=== PATIENT | female | born 1990 | race African-American/Black ===

== ENCOUNTER 2016-11-20 09:52 | Emergency (ER) | payer OTHER ==
--- NOTE | ~2016-11-20 | CT2 ---
[facility] A Service of [facility] & [facility] RADIOLOGY TEXT RESULTS PATIENT: PARISA SANCHEZ LOCATION: CFTX : 88 UNIT #: [id number] AGE: [address]: Lora Rosen APRN SEX: F ORDER DR: [id number] [facility] [address] [place], [place] [address] [id number] MR#: [id number] Acc #: [id number] NAME: PARISA SANCHEZ : 1990 SEX: F STUDY DATE/TIME: UNIT: CFTX ROOM: STUDY DESCRIPTION: CT Abd and Pelv W Cont Attending Physician: Lora Rosen A.P.R.N. Ordering Physician: Kylee Gonzalez M.D. Primary Care Physician: Ramu Nur M.D. MEDICAL IMAGING REPORT This report is preliminary unless electronic signature is present EXAM CT abdomen pelvis with contrast 11/20/2016 1224 hours HISTORY 26-year-old with abdominal pain for 2 weeks. Nausea and vomiting. COMPARISON None. TECHNIQUE Dynamic helical CT images were obtained from the lung bases through the pubic symphysis. Intravenous contrast only was administered. Sagittal and coronal reconstructions were performed. Contrast was Isovue-370 100 mL IV. Total exam DLP 1206 mGy-cm. This CT exam was performed with one or more of the following radiation dose reduction techniques: automatic control, adjustment of mA and/or kV according to patient size, and iterative reconstruction. FINDINGS Images through the lung bases are clear. There are no effusions. The distal esophagus is normal. Images through the abdomen demonstrates diffuse low attenuation of the liver relative to the spleen likely diffuse fatty infiltration. No focal liver lesion is seen. The spleen, pancreas and bile ducts are normal. There is a very contracted gallbladder difficult to assess but no definite stones, sludge or wall thickening is seen. The adrenal glands are normal. The kidneys demonstrate no mass, stone or dilatation. There are no renal or ureteral calculi. The abdominal aorta is normal in caliber. The stomach is nondistended and unopacified but appears normal. There is no small bowel distension or small bowel wall thickening. The terminal ileum is normal. It is difficult to discriminate the appendix but there is no evidence of appendicitis. The colon is nondistended. There is no STS. [facility] A Service of [facility] RADIOLOGY TEXT RESULTS PATIENT: PARISA SANCHEZ LOCATION: CFTX : 89 UNIT #: [id number] AGE: [address]: Lora Rosen [employer] SEX: F ORDER DR: wall thickening. CT pelvis demonstrates anteverted uterus without uterine or adnexal mass. There is no pelvic free fluid. There is no evidence of a ventral wall hernia or inguinal hernia. Lumbar spine is unremarkable. IMPRESSION 1. Exam is somewhat compromised by large body habitus with diffuse graininess of the images. 2. There is fatty infiltration of the liver but no acute findings in the abdomen or pelvis. Dictated by... Carolyn Marquez M.D. THIS IS AN ELECTRONICALLY VERIFIED REPORT Carolyn Marquez M.D. at 11/25/2016 2:30 PM ZE/zach TD: 11/20/2016 13:56 JOB #: [id number] MEDICAL IMAGING REPORT Page 1 of 1 COPY
[~2016-11-20 09:52] MED LIST: PRENATAL PO
[2016-11-20 11:06] LABS: URINE SOURCE CLEAN CATCH
[2016-11-20 11:20] LABS: URINE APPEARANCE CLEAR; URINE BILIRUBIN NEG (NEG); URINE BLOOD TRACE (NEG); URINE COLOR YELLOW; URINE GLUCOSE NEG (NEG); URINE KETONE NEG (NEG); URINE LEUKOCYTE ESTERASE TRACE (NEG); URINE NITRATE NEG (NEG); URINE PROTEIN NEG (NEG); URINE SPECIFIC GRAVITY 1.017 (1.003-1.035)
[2016-11-20 11:22] LABS: CULTURE INDICATED? YES; U HYALINE CASTS AUWI 0-2 /[LPF]; URINE BACTERIA AUWI 2+ (NEGATIVE); URINE SQUAMOUS EPITHELIAL CELL FEW /[HPF]; UWBCS1 AUWI 0-2 (0-5)
[2016-11-20 11:41] LABS: BASOPHIL# 0.1 X10e3 (0-0.3); BASOPHIL% 0.9 % (0-2.5); EOSINOPHIL# 0.1 X10e3 (0-0.7); EOSINOPHIL% 2.1 % (0.0-7.0); HEMATOCRIT 38.1 % (35.0-45.0); HEMOGLOBIN 12.1 gm/dL (12.0-16.0); LYMPHOCYTE# 2.6 X10e3 (1.0-3.5); LYMPHOCYTE% 35.9 % (17.0-45.0); MEAN CELL VOLUME 84.4 FL (83-96); MEAN CORPUSCULAR HEMOGLOBIN 26.8 PG (28-34); MEAN CORPUSCULAR HGB CONC 31.8 g/dL (30-36); MEAN PLATELET VOLUME 9.1 FL (6.5-11.5); MONOCYTE# 0.4 X10e3 (0-1.0); MONOCYTE% 5.3 % (3.0-12.0); NEUTROPHIL% 55.8 % (40-75); PLATELET COUNT 288 X10e3 (140-420); RED BLOOD COUNT 4.51 X10e (3.90-5.30); RED CELL DISTRIBUTION WIDTH 14.5 % (11.0-15.5); WHITE BLOOD COUNT 7.2 X10e3 (4.0-10.5)
[2016-11-20 11:45] LABS: DIFF IND NO
[2016-11-20 12:14] LABS: ALBUMIN SERUM 3.7 g/dL (3.5-5.0); ALKALINE PHOSPHATASE 77 U/L (32-92); ALT (SGPT) 20 U/L (10-40); AMYLASE 25 U/L (0-46); AST (SGOT) 17 U/L (10-42); BILIRUBIN, DIRECT <0.1 mg/dL (0.0-0.2); BILIRUBIN,INDIRECT 0.8 mg/dL (0.0-0.9); BILIRUBIN,TOTAL 0.9 mg/dL (0.2-2.0); BLOOD UREA NITROGEN 6 mg/dL (9-23); BUN/CREATININE RATIO 8.57; CALCIUM SERUM 8.9 mg/dL (8.4-10.2); CARBON DIOXIDE 25 mmol/L (22-31); CHLORIDE 105 mmol/L (100-111); CREATININE SERUM 0.7 mg/dL (0.6-1.4); GLOM FILT RATE Estimated 137.6 mL/min (>60); GLUCOSE FASTING 124 mg/dL (70-110); LIPASE 52 U/L (22-51); POTASSIUM 3.7 mmol/L (3.5-5.1); PROTEIN TOTAL SERUM 7.8 g/dL (6.0-8.3); SODIUM 137 mmol/L (135-145)
== END 2016-11-20 13:08 | disposition home or self-care (01) ==
LOC: CFTX 09:52 → CED 09:52 → CFTX 11:02
PROVIDERS: Nurse Practitioner
DX: R10.9 Unspecified abdominal pain (principal); I10 Essential (primary) hypertension
CPT/HCPCS: 36415; 74177; 80048; 80076; 81003; 82150; 83690; 84703; 85025; 87086; 96361; 96374; 99284; J1885; Q9967